=== PATIENT | male | born 1965 | race Two or more races ===

== ENCOUNTER 2018-03-27 07:24 | Emergency (ER) | payer BC, OTHER ==
[2018-03-27 07:32] VITALS: BP 130/70
[2018-03-27] MEDS ORDERED: Tetan/Diph/Pertus SYR(Tdap)* 0.5 ML SYR(BOOSTRIX) use SYR IM ONE (07:41)
--- NOTE | 2018-03-27 07:48 | UC ---
Skin Complaint HPI - HPI Summary HPI Summary: 52-year-old male comes to clinic today with chief complaint of stepping on a nail with his right foot just prior to arrival. Patient was barefoot when he stepped on the nail. He estimates it went in about 2 inches. Said it went in at an angle. The nail was indoors and a piece of wood that was left there as part of their home is being remodeled. His was able to remove the nail. He does not believe that he is up-to-date with his tetanus. Pain is worse with applying pressure is less without pressure on the wound. Pain is mild without direct pressure. - History of Current Complaint Chief Complaint: UCLaceration Time Seen by Provider: 03/27/18 07:35 Stated Complaint: STEPPED ON NAIL R FOOT Pain Intensity: 3 - Allergy/Home Medications Allergies/Adverse Reactions: Allergies Allergy/AdvReac Type Severity Reaction Status Date / Time No Known Allergies Allergy Verified 03/27/18 07:32 PMH/Surg Hx/FS Hx/Imm Hx Previously Healthy: Yes - Surgical History Surgical History: Yes Surgery Procedure, Year, and Place: RT KNEE ARTHROSCOPY,. RT HIP ROSIE OSTEO. R shoulder - Family History Known Family History: Positive: Non-Contributory - Social History Alcohol Use: Occasionally Substance Use Type: None Smoking Status (MU): Never Smoked Tobacco - Immunization History Most Recent Tetanus Shot: >5 years Review of Systems All Other Systems Reviewed And Are Negative: Yes Constitutional: Positive: Negative Skin: Positive: Other - see hpi Eyes: Positive: Negative ENT: Positive: Negative Respiratory: Positive: Negative Cardiovascular: Positive: Negative Gastrointestinal: Positive: Negative Motor: Positive: Negative Neurovascular: Positive: Negative Musculoskeletal: Positive: Negative Neurological: Positive: Negative Psychological: Positive: Negative Is Patient Immunocompromised?: No Physical Exam Triage Information Reviewed: Yes Appearance: Well-Appearing, No Pain Distress, Well-Nourished Vital Signs: Initial Vital Signs Temp 97.4 F 03/27/18 07:28 Pulse 63 03/27/18 07:28 Resp 14 03/27/18 07:28 BP 130/70 03/27/18 07:28 Pulse Ox 100 03/27/18 07:28 Vital Signs Reviewed: Yes Eye Exam: Normal Eyes: Positive: Conjunctiva Clear Neck exam: Normal Neck: Positive: Supple Respiratory: Positive: No respiratory distress Musculoskeletal Exam: Normal Musculoskeletal: Positive: Strength Intact, ROM Intact Neurological Exam: Normal Neurological: Positive: Alert, Muscle Tone Normal Psychological Exam: Normal Psychological: Positive: Age Appropriate Behavior Skin: Positive: Other - On the plantar aspect of the right foot just anterior to the calcaneus there is a puncture wound. No foreign body seen is not bleeding at this time it is mildly tender to palpation at the site of the puncture wound. The rest of the foot is nontender to palpation. Course/Dx - Course Course Of Treatment: Order Information: FOOT RIGHT 3+ VWS. Accession Number: [id number]. CPT: 73522. Indication: Puncture wound; stepped on nail. Comparison: No relevant prior exams available on the [facility] for comparison. Technique: AP, oblique, and lateral views RIGHT foot. REPORT AND IMPRESSION: # . Lateral plantar skin marker at the level of the midfoot indicating the site of. clinical concern. No conspicuous foreign body, subcutaneous emphysema, fracture, or. malalignment. Mild plantar soft tissue swelling. . <Electronically signed by Preet Elena MD in OV> 03/27/18 0808. I discussed the results of the x-ray with the patient. No foreign body seen on x-ray. We'll treat with Keflex. He was given his T tap here in clinic. Plan is follow up with orthopedics or sports medicine if not completely improved. - Diagnoses Provider Diagnosis: Puncture wound of right foot Discharge - Sign-Out/Discharge Documenting (check all that apply): Patient Departure All imaging exams completed and their final reports reviewed: Yes - Discharge Plan Condition: Stable Disposition: HOME Prescriptions: Cephalexin CAP* [Keflex CAP*] 500 mg PO QID #40 cap Patient Education Materials: Puncture Wound (ED) Referrals: Zachery Hoffman [Primary Care Provider] - Kiki Coronel MD [Medical Doctor] - Mica Carter MD [Medical Doctor] - Additional Instructions: FOLLOW UP WITH YOUR PRIMARY CARE DOCTOR OR ORTHOPEDICS IF NOT COMPLETELY IMPROVED. GET RECHECKED FOR ANY WORSENING OF YOUR CONDITION OR QUESTIONS OR CONCERNS. - Billing Disposition and Condition Condition: STABLE Disposition: Home
== END 2018-03-27 08:10 | disposition home or self-care (01) ==
LOC: UCEAST 07:24
DX: S91.331A Puncture wound without foreign body, right foot, initial encounter (principal); W22.8XXA Striking against or struck by other objects, initial encounter; Y93.01 Activity, walking, marching and hiking; Y92.009 Unspecified place in unspecified non-institutional (private) residence as the place of occurrence of the external cause
CPT/HCPCS: 90471; 90715; 99212; G0463